=== PATIENT | female | born 1960 | race Hispanic/Latino ===

== ENCOUNTER → 2020-04-03 | Outpatient (CLI) | payer SELFPAY | END | disposition home or self-care (01) | LOC: RAH 08:51 | PROVIDERS: ATTEND Internal Medicine | DX: M47.816 Spondylosis without myelopathy or radiculopathy, lumbar region (principal); M51.26 Other intervertebral disc displacement, lumbar region; M48.061 Spinal stenosis, lumbar region without neurogenic claudication | CPT/HCPCS: 72148 ==

== ENCOUNTER → 2020-05-08 | Outpatient (CLI) | payer OTHER ==
[2020-05-08 12:35] LABS: BASOPHILS % (AUTO) 0.8 % (0.0-5.0); EOSINOPHILS % (AUTO) 15.8 % (0.0-8.0); HEMATOCRIT 43.5 % (36-48); LYMPHOCYTES % (AUTO) 43.4 % (21.0-51.0); MEAN CORPUSCULAR HEMOGLOBIN 28.6 pg (27.0-33.0); MEAN CORPUSCULAR HGB CONC 32.9 g/dL (32.0-36.0); MONOCYTES % (AUTO) 5.5 % (3.0-13.0); NEUTROPHILS % (AUTO) 34.2 % (40.0-77.0); PLATELET COUNT (AUTO) 212 K/uL (130-400); RED CELL DISTRIBUTION WIDTH 13.2 % (11.0-15.5); WHITE BLOOD COUNT (AUTO) 7.5 K/uL (4.8-10.8)
[2020-05-08 12:51] LABS: CREATININE 0.7 mg/dL (0.5-1.5); POTASSIUM 3.8 mmol/L (3.5-5.1)
== END | disposition home or self-care (01) ==
LOC: LAB 10:00
PROVIDERS: ATTEND Urology
DX: R31.29 Other microscopic hematuria (principal)
CPT/HCPCS: 36415; 80048; 85025

== ENCOUNTER → 2020-05-31 | Outpatient (CLI) | payer OTHER ==
[~2020-05-31] MED LIST: IOHEXOL-350 75 ML VIAL IV ONE
== END | disposition home or self-care (01) ==
LOC: RAH 07:24
PROVIDERS: ATTEND Urology
DX: N85.8 Other specified noninflammatory disorders of uterus (principal); Z90.710 Acquired absence of both cervix and uterus
CPT/HCPCS: 74178; Q9967

== ENCOUNTER 2020-08-24 11:30 | Observation (INO) | payer OTHER ==
[~2020-08-24] VITALS: Ht 160 cm; Wt 74.7 kg
[2020-08-24 10:46] LABS: BASOPHILS % (AUTO) 0.5 % (0.0-5.0); EOSINOPHILS % (AUTO) 1.6 % (0.0-8.0); HEMATOCRIT 44.3 % (36-48); LYMPHOCYTES % (AUTO) 44.3 % (21.0-51.0); MEAN CORPUSCULAR HEMOGLOBIN 29.2 pg (27.0-33.0); MEAN CORPUSCULAR HGB CONC 34.1 g/dL (32.0-36.0); MEAN CORPUSCULAR VOLUME 85.7 fL (79-99); MONOCYTES % (AUTO) 5.4 % (3.0-13.0); PLATELET COUNT (AUTO) 209 K/uL (130-400); RED BLOOD CELL COUNT(AUTO) 5.17 MIL/uL (4.00-5.50); RED CELL DISTRIBUTION WIDTH 12.5 % (11.0-15.5); WHITE BLOOD COUNT (AUTO) 5.5 K/uL (4.8-10.8)
[2020-08-24 10:54] LABS: POTASSIUM 4.1 mmol/L (3.5-5.1)
[2020-08-29 08:35] VITALS: BP 146/86
[2020-08-29] MEDS ORDERED: LEVO5TAB13 PO (09:02)
[2020-08-29] MEDS ORDERED: LISI20TA24 PO (09:02)
[2020-08-29] MEDS ORDERED: ATOR40TA71 PO (09:02)
[2020-08-29] MEDS ORDERED: DULO60CA44 PO (09:02)
[2020-08-29] MEDS ORDERED: GABA800T9 PO (09:02)
[2020-08-30] VITALS (23 sets, daily range): BP systolic 104–144; BP diastolic 57–81
[2020-08-30] MEDS: CEFAZOLIN SODIUM 1 GM VIAL IVP SCH ×2 (06:30→08:05)
[2020-08-30] MEDS ORDERED: SODIUM CHLORIDE 0.9% 1000ML 1,000 ML IV ONE (06:35)
[2020-08-30] MEDS ORDERED: LACTATED RINGERS 1000ML 1,000 ML IV ONE (06:35)
[2020-08-30] MEDS ORDERED: CEFAZOLIN SODIUM 1 GM VIAL ONE (06:48)
[2020-08-30] MEDS ORDERED: DURAMORPH PF1 MG/ML 10ML AMP IV ONE (06:48)
[2020-08-30] MEDS ORDERED: BUPIVACAINE/EPI/PF 0.25% 30ML VIAL IJ ONE (06:48)
[2020-08-30] MEDS ORDERED: THROMBIN-JMI 20000 UNIT KIT TP ONE (06:48)
[2020-08-30] MEDS ORDERED: BUPIVACAINE/EPI/PF 0.5% 30ML VIAL IJ SCH (07:00)
[2020-08-30] MEDS ORDERED: GLYCOPYRROLATE 1 MG/5 ML SYRINGE ONE (07:05)
[2020-08-30] MEDS ORDERED: LIDOCAINE PF 2% 5ML ABBOJECT ONE (07:05)
[2020-08-30] MEDS ORDERED: SUCCINYLCHOLINE CHLORIDE 20 MG/ML 10 ML VIAL ONE (07:05)
[2020-08-30] MEDS ORDERED: DEXAMETHASONE SOD PHOSPHATE 10MG/ML 1ML VIAL ONE ×2 (07:05→07:09)
[2020-08-30] MEDS ORDERED: FENTANYL CITRATE PF 50 MCG/1 ML 2ML VIAL ONE ×2 (07:06→08:27)
[2020-08-30] MEDS ORDERED: ROCURONIUM 10MG/1ML SYR 10 MG/ML ML ONE (07:06)
[2020-08-30] MEDS ORDERED: NEOSTIGMINE 5MG/5ML SYR IV ONE (07:06)
[2020-08-30] MEDS ORDERED: ONDANSETRON HCL 4 MG/2 ML VIAL ONE (07:06)
[2020-08-30] MEDS ORDERED: PROPOFOL 10 MG/ML 20ML VIAL IV ONE (07:06)
[2020-08-30] MEDS ORDERED: MIDAZOLAM HCL 1 MG/ML 2ML VIAL ONE (07:06)
[2020-08-30] MEDS ORDERED: PHENYLEPHRINE HCL 10 MG/ML 1ML VIAL IV ONE (08:13)
[2020-08-30] MEDS ORDERED: EPHEDRINE SULFATE 50 MG/ML AMPULE ONE (08:57)
[2020-08-30] MEDS ORDERED: DEXAMETHASONE SOD PHOSPHATE 4 MG/ML 1ML VIAL IVP SCH (10:30)
[2020-08-30] MEDS ORDERED: PROMETHAZINE HCL 25 MG/ML 1ML AMPULE IM PRN (10:30)
[2020-08-30] MEDS: LACTATED RINGERS 1000ML 1,000 ML IV SCH ×2 (10:30→20:18)
[2020-08-30] MEDS ORDERED: CEFAZOLIN SODIUM 1 GM VIAL IVP SCH ×2 (10:30→16:00)
[2020-08-30] MEDS ORDERED: SODIUM CHLORIDE 0.9% 10 ML VIAL IVP PRN (10:30)
[2020-08-30] MEDS ORDERED: MEPERIDINE-PF 25 MG/ML SYG ONE (11:11)
[2020-08-30] MEDS: MORPHINE SULFATE 2 MG/ML 1ML SYG IVP PRN ×3 (12:22→23:31)
[2020-08-30] MEDS: DEXAMETHASONE SOD PHOSPHATE 4 MG/ML 1ML VIAL IVP SCH ×2 (13:05→18:48)
[2020-08-30 13:49] LABS: CREATININE 0.8 mg/dL (0.5-1.5); POTASSIUM 3.7 mmol/L (3.5-5.1)
[2020-08-30] MEDS: HYDROCODONE/ACETAMINOPHEN 5/325 MG TAB PO PRN (16:07)
[2020-08-30] MEDS ORDERED: LEVOCETIRIZINE PO SCH (21:00)
[2020-08-30] MEDS ORDERED: DULOXETINE HCL 30 MG CAP PO SCH (21:00)
[2020-08-30] MEDS ORDERED: GABAPENTIN 100 MG CAPSULE PO SCH (21:00)
[2020-08-30] MEDS ORDERED: GABAPENTIN 300 MG CAPSULE PO SCH (21:00)
[2020-08-30] MEDS ORDERED: ATORVASTATIN CALCIUM 40 MG TABLET PO SCH (21:00)
[2020-08-30] MEDS ORDERED: LISINOPRIL 20 MG TABLET PO SCH (21:00)
[2020-08-31] VITALS: BP 110/43
[2020-08-31] MEDS: DEXAMETHASONE SOD PHOSPHATE 4 MG/ML 1ML VIAL IVP SCH ×3 (00:13→12:25)
[2020-08-31] MEDS: HYDROCODONE/ACETAMINOPHEN 5/325 MG TAB PO PRN ×2 (02:53→11:55)
[2020-08-31 04:00] VITALS: BP 121/67
[2020-08-31] MEDS: MORPHINE SULFATE 2 MG/ML 1ML SYG IVP PRN ×2 (06:10→10:11)
[2020-08-31 08:23] VITALS: BP 135/69
[2020-08-31 11:43] VITALS: BP 120/59
== END 2020-08-31 13:00 | disposition home or self-care (01) ==
LOC: EDSTATUS 11:30 → DAHIP 08-30 05:55 → 3AH 08-30 11:43
PROVIDERS: ADMIT Neurological Surgery; ATTEND Neurological Surgery
DX: M48.062 Spinal stenosis, lumbar region with neurogenic claudication (principal); Z20.822 Contact with and (suspected) exposure to COVID-19; N83.209 Unspecified ovarian cyst, unspecified side
CPT/HCPCS: 36415 ×2; 63047; 63048; 71045; 72020; 80048; 80051; 82948 ×2; 85025; 93005; 96361; 96374; 96375; 96376 ×2; A4215; A4216; A4221; A4222; A4223; A4344; A4510; A4600; A4649 ×3; A4663; A6260; G0378 ×26; J0330; J0690 ×3; J1100 ×7; J2001; J2175; J2250; J2274; J2370; J2405; J2704; J2710; J3010 ×2; J3490 ×3; J7030; J7120; U0003